=== PATIENT | female | born 1950 | race American Indian/Alaskan Native ===

== ENCOUNTER → 2018-04-15 14:00 | Outpatient (CLI) | payer OTHER, SELFPAY | PROVIDERS: Family Provider Physician Assistant Medical; PCP Physician Assistant Medical | DX: Z23 Encounter for immunization (principal) | CPT/HCPCS: 90471; 90662 ==

== ENCOUNTER → 2019-05-21 14:00 | Outpatient (CLI) | payer OTHER, SELFPAY | PROVIDERS: Family Provider Physician Assistant Medical; PCP Physician Assistant Medical | DX: Z23 Encounter for immunization (principal) | CPT/HCPCS: 90471; 90662 ==

== ENCOUNTER → 2019-06-01 13:37 | Outpatient (CLI) | payer OTHER, SELFPAY ==
[2019-06-01 15:51] LABS: TSH w/ Reflex to FT4 0.74 uIU/mL (0.47-4.68)
== END ==
PROVIDERS: PCP Family Medicine; Visit Provider Family Medicine
DX: E03.9 Hypothyroidism, unspecified (principal)
CPT/HCPCS: 84443

== ENCOUNTER → 2020-05-03 14:40 | Outpatient (CLI) | payer OTHER, SELFPAY ==
[2020-05-05 08:39] LABS: COVID19 Sendout Not Detected (Not Detect)
== END ==
PROVIDERS: PCP Family Medicine; Visit Provider Physician Assistant
DX: Z03.818 Encounter for observation for suspected exposure to other biological agents ruled out (principal)
CPT/HCPCS: 87635

== ENCOUNTER → 2020-05-07 10:32 | Outpatient (CLI) | payer OTHER, SELFPAY ==
[2020-05-08 22:37] LABS: COVID19 Sendout Not Detected (Not Detect)
== END ==
PROVIDERS: PCP Family Medicine; Visit Provider Physician Assistant
DX: Z11.59 Encounter for screening for other viral diseases (principal)
CPT/HCPCS: 87635

== ENCOUNTER → 2020-05-10 19:27 | Outpatient (CLI) | payer OTHER, SELFPAY | PROVIDERS: PCP Family Medicine; Referring Provider Internal Medicine; Visit Provider Internal Medicine | DX: Z23 Encounter for immunization (principal) | CPT/HCPCS: 90471; 90686 ==

== ENCOUNTER → 2020-07-12 11:51 | Outpatient (CLI) | payer OTHER, SELFPAY ==
[2020-07-12 13:25] LABS: COVID19 -Nasal RAPID POSITIVE (Negative)
== END ==
PROVIDERS: PCP Family Medicine; Visit Provider Physician Assistant
DX: U07.1 COVID-19 (principal)
CPT/HCPCS: 87635

== ENCOUNTER → 2020-09-16 10:22 | Outpatient (CLI) | payer OTHER, SELFPAY ==
[2020-09-16 11:54] LABS: Alanine Aminotransferase 24 IU/L (<35); Albumin 4.2 g/dL (3.5-5.0); Albumin Globulin Ratio 1.2 (1.0-2.8); Alkaline Phosphatase 86 U/L (38-126); Aspartate Aminotransferase 30 IU/L (14-36); Bilirubin Total 0.8 mg/dL (0.2-1.3); Blood Urea Nitrogen 13 mg/dL (7-17); Calcium 9.3 mg/dL (8.4-10.2); Carbon Dioxide 32 mmol/L (22-32); Chloride 106 mmol/L (98-107); Cholesterol 224 mg/dL (140-199); Estimated Glomerular Filt Rate > 60.0 mL/min (>60); Globulin 3.5 g/dL (1.7-4.1); Glucose 108 mg/dL (80-110); HDL Cholesterol 57 mg/dL (40-60); HEMOLYSIS < 15 (0-50); LDL Cholesterol Calculated 122 mg/dL (<100); Potassium 4.1 mmol/L (3.4-5.1); Sodium 139 mmol/L (137-145); Total Protein 7.7 g/dL (6.3-8.2); Triglycerides 226 mg/dL (35-150)
[2020-09-16 11:56] LABS: Hemoglobin A1C% w Est Avg Glu 6.7 % (4.0-6.0)
[2020-09-16 12:47] LABS: TSH w/ Reflex to FT4 0.54 uIU/mL (0.47-4.68)
== END ==
PROVIDERS: PCP Internal Medicine; Referring Provider Internal Medicine; Visit Provider Internal Medicine
DX: E03.9 Hypothyroidism, unspecified (principal); E11.65 Type 2 diabetes mellitus with hyperglycemia
CPT/HCPCS: 36415; 80053; 80061; 83036; 84443

== ENCOUNTER → 2020-10-13 16:09 | Outpatient (CLI) | payer OTHER, SELFPAY ==
[2020-10-13] MEDS: COVID-19 VACC, Ad26(JANSSEN)/PF 0.5 ML IM (16:21)
== END ==
PROVIDERS: PCP Internal Medicine; Visit Provider Internal Medicine
DX: Z23 Encounter for immunization (principal)
CPT/HCPCS: 0031A; 91303

== ENCOUNTER → 2021-03-17 11:10 | Outpatient (CLI) | payer OTHER, SELFPAY ==
[2021-03-17 12:18] LABS: Hemoglobin A1C% w Est Avg Glu 5.7 % (4.0-6.0)
== END ==
PROVIDERS: PCP Internal Medicine; Referring Provider Internal Medicine; Visit Provider Internal Medicine
DX: E11.65 Type 2 diabetes mellitus with hyperglycemia (principal)
CPT/HCPCS: 83036

== ENCOUNTER → 2021-05-09 14:02 | Outpatient (CLI) | payer OTHER, SELFPAY ==
[2021-05-09 15:32] LABS: COVID19 -Nasal RAPID Negative (Negative)
== END ==
PROVIDERS: PCP Internal Medicine; Referring Provider Nurse Practitioner Family; Visit Provider Nurse Practitioner Family
DX: Z20.822 Contact with and (suspected) exposure to COVID-19 (principal)
CPT/HCPCS: 87635

== ENCOUNTER → 2021-05-23 13:52 | Outpatient (CLI) | payer OTHER, SELFPAY | PROVIDERS: PCP Internal Medicine; Referring Provider Internal Medicine; Visit Provider Internal Medicine | DX: Z23 Encounter for immunization (principal) | CPT/HCPCS: 90471; 90662 ==

== ENCOUNTER → 2021-06-23 09:11 | Outpatient (CLI) | payer OTHER, SELFPAY ==
[2021-06-23] MEDS: COVID-19 VACC #3, MRNA(MOD) 50 MCG/0.25 ML VIAL IM (09:14)
== END ==
PROVIDERS: PCP Internal Medicine; Visit Provider Internal Medicine
DX: Z23 Encounter for immunization (principal)
CPT/HCPCS: 0013A; 91301

== ENCOUNTER → 2021-07-21 15:31 | Outpatient (CLI) | payer OTHER, SELFPAY ==
--- NOTE | 2021-07-21 | DI.MG.S_ITS ---
BILATERAL DIGITAL SCREENING MAMMOGRAM 3D/2D WITH CAD: 07/21/2021 CLINICAL: Routine screening. Baseline exam. No prior exams were available for comparison. There are scattered fibroglandular elements in both breasts. Current study was also evaluated with a Computer Aided Detection (CAD) system. No significant masses, calcifications, or other findings are seen in either breast. IMPRESSION: NEGATIVE There is no mammographic evidence of malignancy. A 1 year screening mammogram is recommended. This exam was interpreted at Station ID: [id number]. NOTE: For mammograms, a report in lay terms will be sent to the patient. Approximately 15% of breast malignancies will not be visualized mammographically. In the management of a palpable breast mass, a negative mammogram must not discourage biopsy of a clinically suspicious lesion. Electronically Signed By: Bethel [email or web address]:07/21/2021 16:36:41 letter sent: Normal Exam ACR BI-RADS Category 1: Negative 3341F
== END ==
PROVIDERS: PCP Internal Medicine; Referring Provider Internal Medicine; Visit Provider Internal Medicine
DX: Z12.31 Encounter for screening mammogram for malignant neoplasm of breast (principal)
CPT/HCPCS: 77063; 77067

== ENCOUNTER → 2021-12-04 09:36 | Outpatient (CLI) | payer OTHER, SELFPAY ==
[2021-12-04 11:09] LABS: Add Manual Diff / Slide Review NO; Basophils Absolute Auto 0 /uL (0-100); Basophils Percent Auto 0.5 % (0-2); Eosinophils Absolute Auto 400 /uL (0-450); Eosinophils Percent Auto 6.3 % (2-4); Hematocrit 40.1 % (36-46); Lymphocytes Absolute Auto 2500 /uL (1100-4500); Lymphocytes Percent Auto 34.9 % (25-40); Mean Corpuscular HGB Conc 34.8 % (30-36); Mean Corpuscular Hemoglobin 32.1 PG (26-34); Mean Corpuscular Volume 92.3 fL (80-100); Monocytes Absolute Auto 600 /uL (0-900); Monocytes Percent Auto 8.2 % (3-14); Neutrophils Absolute Auto 3600 /uL (1500-7000); Neutrophils Percent Auto 50.1 % (50-75); Platelet Count 240 X10^3/uL (150-400); Red Blood Cell Count 4.35 X10^6/uL (4.0-5.2); Red Cell Distribution Width 13.9 % (11.6-14.8); White Blood Cell Count 7.1 X10^3/uL (4.5-11.0)
[2021-12-04 11:22] LABS: Alanine Aminotransferase 26 IU/L (<35); Albumin 4.2 g/dL (3.5-5.0); Albumin Globulin Ratio 1.1 (1.0-2.8); Alkaline Phosphatase 126 U/L (38-126); Aspartate Aminotransferase 30 IU/L (14-36); BUN Creatinine Ratio 23.9 (6-22); Bilirubin Total 0.6 mg/dL (0.2-1.3); Blood Urea Nitrogen 16 mg/dL (7-17); Carbon Dioxide 29 mmol/L (22-32); Chloride 109 mmol/L (98-107); Cholesterol 225 mg/dL (140-199); Estimated Glomerular Filt Rate > 60 mL/min (>60); Globulin 3.7 g/dL (1.7-4.1); Glucose 110 mg/dL (80-110); HDL Cholesterol 62 mg/dL (40-60); HEMOLYSIS < 15 (0-50); LDL Cholesterol Calculated 127 mg/dL (<100); Potassium 4.7 mmol/L (3.4-5.1); Sodium 144 mmol/L (137-145); Total Protein 7.9 g/dL (6.3-8.2); Triglycerides 181 mg/dL (35-150)
[2021-12-04 11:59] LABS: Hemoglobin A1C% w Est Avg Glu 6.3 % (4.0-6.0)
[2021-12-04 12:08] LABS: TSH w/ Reflex to FT4 2.44 uIU/mL (0.47-4.68)
[2021-12-04 16:25] LABS: Creatinine Urine Random 46.6 mg/dL
[2021-12-04 16:28] LABS: Microalbumi Creatinin Ratio Ur 23.6 ug/mg CR (<30); Microalbumin Urine Random 1.1 mg/dL (0-1.6)
== END ==
PROVIDERS: PCP Internal Medicine; Referring Provider Internal Medicine; Visit Provider Internal Medicine
DX: E11.65 Type 2 diabetes mellitus with hyperglycemia (principal); E03.9 Hypothyroidism, unspecified
CPT/HCPCS: 36415; 80053; 80061; 82043; 82570; 83036; 84443; 85025

== ENCOUNTER → 2022-05-17 14:07 | Outpatient (CLI) | payer OTHER, SELFPAY | PROVIDERS: PCP Internal Medicine; Referring Provider Internal Medicine; Visit Provider Internal Medicine | DX: Z23 Encounter for immunization (principal) | CPT/HCPCS: 90471; 90662 ==

== ENCOUNTER → 2022-06-06 09:53 | Outpatient (CLI) | payer OTHER, SELFPAY ==
[2022-06-06 11:35] LABS: BUN Creatinine Ratio 22.7 (6-22); Blood Urea Nitrogen 15 mg/dL (7-17); Calcium 9.4 mg/dL (8.4-10.2); Carbon Dioxide 28 mmol/L (22-32); Chloride 104 mmol/L (98-107); Cholesterol 212 mg/dL (140-199); Estimated Glomerular Filt Rate > 60 mL/min (>60); Glucose 115 mg/dL (80-110); HDL Cholesterol 63 mg/dL (40-60); HEMOLYSIS < 15 (0-50); LDL Cholesterol Calculated 108 mg/dL (<100); Potassium 4.5 mmol/L (3.4-5.1); Sodium 140 mmol/L (137-145); Triglycerides 206 mg/dL (35-150)
[2022-06-06 12:12] LABS: TSH w/ Reflex to FT4 5.02 uIU/mL (0.47-4.68)
[2022-06-06 12:59] LABS: Hemoglobin A1C% w Est Avg Glu 5.9 % (4.0-6.0)
[2022-06-06 16:40] LABS: Microalbumi Creatinin Ratio Ur 21.3 ug/mg CR (<30); Microalbumin Urine Random 1.9 mg/dL (0-1.6)
== END ==
PROVIDERS: PCP Internal Medicine; Referring Provider Internal Medicine; Visit Provider Internal Medicine
DX: E11.9 Type 2 diabetes mellitus without complications (principal); E03.9 Hypothyroidism, unspecified
CPT/HCPCS: 36415; 80048; 80061; 82043; 82570; 83036; 84439; 84443

== ENCOUNTER → 2022-08-03 15:02 | Outpatient (CLI) | payer OTHER, SELFPAY ==
--- NOTE | 2022-08-03 15:04 | DI.MG.S_ITS ---
BILATERAL DIGITAL SCREENING MAMMOGRAM 3D/2D WITH CAD: 08/03/2022 CLINICAL: Routine screening. Comparison is made to exam dated: 07/21/2021 mammogram - [facility]. Both breasts are almost entirely fatty (category a/<25% glandular tissue). Current study was also evaluated with a Computer Aided Detection (CAD) system. No significant masses, calcifications, or other findings are seen in either breast. There has been no significant interval change. IMPRESSION: NEGATIVE There is no mammographic evidence of malignancy. A 1 year screening mammogram is recommended. Based on the Tyrer Cuzick model (a risk assessment model) the patient's lifetime risk is 2.5% and her 10 year risk is 1.7%. According to the ACR, ACS, and NCCN guidelines, an annual breast MRI exam along with mammogram is recommended if the patient's lifetime risk is 20% or greater. This exam was interpreted at Station ID: [id number]. NOTE: For mammograms, a report in lay terms will be sent to the patient. Approximately 15% of breast malignancies will not be visualized mammographically. In the management of a palpable breast mass, a negative mammogram must not discourage biopsy of a clinically suspicious lesion. Electronically Signed By: Fannie marie/chelsi:08/03/2022 16:17:50 letter sent: Normal Exam ACR BI-RADS Category 1: Negative 3341F
== END ==
PROVIDERS: PCP Internal Medicine; Referring Provider Internal Medicine; Visit Provider Internal Medicine
DX: Z12.31 Encounter for screening mammogram for malignant neoplasm of breast (principal)
CPT/HCPCS: 77063; 77067

== ENCOUNTER → 2022-12-04 13:53 | Outpatient (CLI) | payer OTHER, SELFPAY | PROVIDERS: PCP Internal Medicine; Referring Provider Internal Medicine; Visit Provider Internal Medicine | DX: E11.9 Type 2 diabetes mellitus without complications (principal); E03.9 Hypothyroidism, unspecified | CPT/HCPCS: 36415; 83036; 84439; 84443 ==

== ENCOUNTER → 2023-05-22 11:31 | Outpatient (CLI) | payer OTHER, SELFPAY | PROVIDERS: PCP Internal Medicine; Referring Provider Family Medicine; Visit Provider Family Medicine | DX: Z23 Encounter for immunization (principal) | CPT/HCPCS: 90471; 90686 ==

== ENCOUNTER → 2023-05-30 06:59 | Outpatient (CLI) | payer OTHER, SELFPAY ==
[2023-05-30 07:43] LABS: Add Manual Diff / Slide Review NO; Basophils Absolute Auto 0 /uL (0-100); Basophils Percent Auto 0.4 % (0-2); Eosinophils Absolute Auto 300 /uL (0-450); Eosinophils Percent Auto 3.8 % (2-4); Hematocrit 40.6 % (36-46); Hemoglobin 14.2 g/dL (12.0-16.0); Lymphocytes Absolute Auto 2700 /uL (1100-4500); Lymphocytes Percent Auto 41.2 % (25-40); Mean Corpuscular HGB Conc 35.1 % (30-36); Mean Corpuscular Hemoglobin 32.4 PG (26-34); Mean Corpuscular Volume 92.5 fL (80-100); Monocytes Absolute Auto 500 /uL (0-900); Monocytes Percent Auto 8.1 % (3-14); Neutrophils Absolute Auto 3100 /uL (1500-7000); Neutrophils Percent Auto 46.5 % (50-75); Platelet Count 216 X10^3/uL (150-400); Red Blood Cell Count 4.39 X10^6/uL (4.0-5.2); Red Cell Distribution Width 12.9 % (11.6-14.8); White Blood Cell Count 6.6 X10^3/uL (4.5-11.0)
[2023-05-30 07:50] LABS: Hemoglobin A1C% w Est Avg Glu 7.1 % (4.0-6.0)
[2023-05-30 08:02] LABS: Alanine Aminotransferase 25 IU/L (<35); Albumin 4.1 g/dL (3.5-5.0); Albumin Globulin Ratio 1.2 (1.0-2.8); Alkaline Phosphatase 116 U/L (38-126); Aspartate Aminotransferase 26 IU/L (14-36); BUN Creatinine Ratio 22.2 (6-22); Bilirubin Total 0.7 mg/dL (0.2-1.3); Blood Urea Nitrogen 14 mg/dL (7-17); Calcium 9.4 mg/dL (8.4-10.2); Carbon Dioxide 29 mmol/L (22-32); Chloride 104 mmol/L (98-107); Cholesterol 226 mg/dL (140-199); Estimated Glomerular Filt Rate > 60 mL/min (>60); Globulin 3.3 g/dL (1.7-4.1); Glucose 156 mg/dL (80-110); HDL Cholesterol 55 mg/dL (40-60); HEMOLYSIS < 15 (0-50); LDL Cholesterol Calculated 119 mg/dL (<100); Potassium 4.4 mmol/L (3.4-5.1); Sodium 139 mmol/L (137-145); Total Protein 7.4 g/dL (6.3-8.2); Triglycerides 262 mg/dL (35-150)
[2023-05-30 08:15] LABS: Free T4, Direct Thyroxine 1.36 ng/dL (0.78-2.19)
[2023-05-30 08:29] LABS: Thyroid Stimulating Hormone 0.814 uIU/mL (0.47-4.68)
== END ==
PROVIDERS: PCP Internal Medicine; Referring Provider Internal Medicine; Visit Provider Internal Medicine
DX: E11.9 Type 2 diabetes mellitus without complications (principal)
CPT/HCPCS: 36415; 80053; 80061; 83036; 84439; 84443; 85025

== ENCOUNTER → 2023-08-26 09:09 | Outpatient (CLI) | payer OTHER, SELFPAY ==
[2023-08-26 10:45] LABS: Alanine Aminotransferase 22 IU/L (<35); Albumin Globulin Ratio 1.2 (1.0-2.8); Alkaline Phosphatase 94 U/L (38-126); Aspartate Aminotransferase 22 IU/L (14-36); BUN Creatinine Ratio 24.3 (6-22); Bilirubin Total 0.9 mg/dL (0.2-1.3); Blood Urea Nitrogen 17 mg/dL (7-17); Calcium 9.4 mg/dL (8.4-10.2); Carbon Dioxide 27 mmol/L (22-32); Chloride 102 mmol/L (98-107); Cholesterol 213 mg/dL (140-199); Estimated Glomerular Filt Rate > 60 mL/min (>60); Globulin 3.3 g/dL (1.7-4.1); Glucose 152 mg/dL (80-110); HDL Cholesterol 50 mg/dL (40-60); HEMOLYSIS < 15 (0-50); LDL Cholesterol Calculated 95 mg/dL (<100); Potassium 4.5 mmol/L (3.4-5.1); Sodium 140 mmol/L (137-145); Total Protein 7.3 g/dL (6.3-8.2); Triglycerides 342 mg/dL (35-150)
[2023-08-26 10:54] LABS: Hemoglobin A1C% w Est Avg Glu 7.1 % (4.0-6.0)
== END ==
LOC: LAB 09:11
PROVIDERS: PCP Internal Medicine; Referring Provider Internal Medicine; Visit Provider Internal Medicine
DX: E78.5 Hyperlipidemia, unspecified (principal); E11.9 Type 2 diabetes mellitus without complications
CPT/HCPCS: 36415; 80053; 80061; 83036

== ENCOUNTER → 2023-10-01 14:49 | Outpatient (CLI) | payer OTHER, SELFPAY ==
--- NOTE | 2023-10-01 | DI.MG.S_ITS ---
BILATERAL DIGITAL SCREENING MAMMOGRAM 3D/2D WITH CAD: 10/01/2023 CLINICAL: Routine screening. Comparison is made to exams dated: 08/03/2022 mammogram and 07/21/2021 mammogram - [facility]. Both breasts are almost entirely fatty (category a/<25% glandular tissue). Current study was also evaluated with a Computer Aided Detection (CAD) system. There are benign vascular calcifications in both breasts. No significant masses, calcifications, or other findings are seen in either breast. There has been no significant interval change. IMPRESSION: BENIGN There is no mammographic evidence of malignancy. A 1 year screening mammogram is recommended. Based on the Tyrer Cuzick model (a risk assessment model) the patient's lifetime risk is 2.4% and her 10 year risk is 1.8%. According to the ACR, ACS, and NCCN guidelines, an annual breast MRI exam along with mammogram is recommended if the patient's lifetime risk is 20% or greater. This exam was interpreted at Station ID: [id number]. NOTE: For mammograms, a report in lay terms will be sent to the patient. Approximately 15% of breast malignancies will not be visualized mammographically. In the management of a palpable breast mass, a negative mammogram must not discourage biopsy of a clinically suspicious lesion. Electronically Signed By: Eloise [email or web address]:10/02/2023 09:14:36 letter sent: Normal Exam ACR BI-RADS Category 2: Benign Finding(s) 3342F
== END ==
LOC: MAMMO 14:50
PROVIDERS: PCP Internal Medicine; Referring Provider Internal Medicine; Visit Provider Internal Medicine
DX: Z12.31 Encounter for screening mammogram for malignant neoplasm of breast (principal)
CPT/HCPCS: 77063; 77067

== ENCOUNTER → 2024-02-26 06:56 | Outpatient (CLI) | payer OTHER, SELFPAY ==
[2024-02-26 08:22] LABS: Hemoglobin A1C% w Est Avg Glu 7.4 % (4.0-6.0)
[2024-02-26 08:42] LABS: BUN Creatinine Ratio 23.4 (6-22); Blood Urea Nitrogen 18 mg/dL (7-17); Calcium 8.7 mg/dL (8.4-10.2); Carbon Dioxide 24 mmol/L (22-32); Chloride 108 mmol/L (98-107); Cholesterol 248 mg/dL (140-199); Estimated Glomerular Filt Rate > 60 mL/min (>60); Glucose 193 mg/dL (80-110); HDL Cholesterol 49 mg/dL (40-60); HEMOLYSIS < 15 (0-50); Potassium 4.5 mmol/L (3.4-5.1); Sodium 139 mmol/L (137-145)
[2024-02-26 08:53] LABS: Triglycerides 608 mg/dL (35-150)
[2024-02-26 09:07] LABS: Thyroid Stimulating Hormone < 0.015 uIU/mL (0.47-4.68)
== END ==
LOC: LAB 06:57
PROVIDERS: PCP Internal Medicine; Referring Provider Internal Medicine; Visit Provider Internal Medicine
DX: E03.9 Hypothyroidism, unspecified (principal); E11.9 Type 2 diabetes mellitus without complications
CPT/HCPCS: 36415; 80048; 80061; 83036; 84439; 84443